=== PATIENT | female | born 1955 | race African-American/Black ===

== ENCOUNTER 2016-06-25 08:21 | Emergency (ER) | payer OTHER, BC ==
[~2016-06-25] VITALS: Ht 170.2 cm; Wt 74.8 kg
--- NOTE | ~2016-06-25 | EKG ---
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
[2016-06-25 09:10] LABS: BASOPHILS 1.5 % (0.0-2.0); HEMATOCRIT 33.6 % (37.0-47.0); HEMOGLOBIN 11.2 gm/dL (12.0-15.0); LYMPHOCYTES 10.7 % (24.0-44.0); MCH 29.3 pg (26.0-34.0); MCHC 33.3 g/dL (28.0-37.0); MONOCYTES 9.1 % (1.0-8.0); PLATELET COUNT 165 thou/uL (150-400); POLYS 71.7 % (36.0-66.0); RBC 3.82 mil/uL (4.20-5.00); RDW 16.3 % (10.5-14.5)
[2016-06-25 09:11] LABS: MANUAL DIFF NO
[2016-06-25 09:27] LABS: ANION GAP 8 mmol/L (7-16); BUN 34 mg/dL (7-18); CHLORIDE 97 mmol/L (98-107); CO2 32 mmol/L (21-32); CREATININE 8.4 mg/dL (0.6-1.3); GLUCOSE 91 mg/dL (70-99); POTASSIUM 5.5 mmol/L (3.5-5.1); SODIUM 137 mmol/L (136-145); TROPONIN-I < 0.04 ng/mL (<0.04-0.07)
[2016-06-25] MEDS ORDERED: NORCO 5-325 TA1 EACH PO (09:32)
[2016-06-25 10:58] VITALS: BP 162/77
== END 2016-06-25 10:59 | disposition home or self-care (01) ==
LOC: ER 08:21
PROVIDERS: Emergency Medicine
DX: R07.89 Other chest pain (principal); Z98.890 Other specified postprocedural states; I12.0 Hypertensive chronic kidney disease with stage 5 chronic kidney disease or end stage renal disease; N18.6 End stage renal disease; Z99.2 Dependence on renal dialysis; E78.00 Pure hypercholesterolemia, unspecified

== ENCOUNTER 2019-12-21 05:01 | Emergency (ER) | payer OTHER, BC ==
[~2019-12-21] VITALS: Ht 170.2 cm; Wt 74.8 kg
--- NOTE | ~2019-12-21 | EMS ---
[address] [address] EMS Patient Care Report Name: LUCIANA MOSLEY Room #: REG LUCIANO So#: [id number] Admission: 12/21/19 Attend Phys: Discharge: Date of : 57 Report #: [id number] THIS REPORT FOR: //name// Report Transmitted: 12/21/2019 06:58 EMS Care Summary [facility] MED-ACT Incident [id number] @ 12/21/2019 04:10 Incident Location [address] [place] [id number] Patient LUCIANA MOSLEY Female, 64 Years 1955 Patient Address [address] [place] [id number] Patient History Atrial Fibrillation,Hip Fracture,Chronic Kidney Disease, Patient Allergies Other drug allergy,Amoxicillin, Patient Medications Lidocaine, Hydrocodone, Amiodarone, Midodrine, Albuterol, Atorvastatin, Levothyroxine, Warfarin, Amitriptyline, Aspirin, Cyclobenzaprine, Gabapentin, Levofloxacin, Prednisone, Chief Complaint low blood pressure per staff Disposition Transported No Lights/[place] Dispatch Reason Sick Person Transported To [facility] Narrative [address] [address] EMS Patient Care Report Name: LUCIANA MOSLEY Room #: REG [place]#: [id number] Admission: 12/21/19 Attend Phys: Discharge: Date of : 57 Report #: [id number] Medic 1149 dispatched to C3 Sick/Ill subject. Pt states that she woke up at approx 02:00 this morning and wanted to sit on the side of her bed. When she sat up, she stated that she could feel that her BP was low and asked the staff to take it for her. Staff found pt to have a BP of approx 60/40. Pt has remained alert and oriented the entire time and denies any shortness of breath, chest pain or other COVID related symptoms. Staff states pt is a dialysis pt and was last dialyzed yesterday (Wednesday) following normal procedure. Staff states that they administered a dose of Midodrine approx 10 prior to summoning EMS in an attempt to raise pt's blood pressure. Staff states pt is at facility recovering from a fractured pelvis. Staff placed pt on 2 lpm via nasal cannula due to hypotension. Upon arrival, pt found sitting on the edge of her bed and leaning to her left where the bed was raised. Pt alert and oriented. No respiratory distress noted. Skin warm, dry. Pt unable to stand due to weakness and knee pain (from previous injuries/surgeries) and had to be sat down. Pt ended up sliding from bed to cot with slight assistance from sheet drag with no incident. V/S acquired on scene. Pt moved from bed to cot and buckled in. Pt taken to ambulance where V/S monitored and pt placed back on 2 lpm via nasal cannula due to slight decrease in O2 Sat when moving pt, although it was difficult to gain an accurate reading on pt due to poor circulation and constant movement. IV access was attempted with no success. Pt transported in position of comfort. Upon arrival, pt moved from cot to bed via sheet drag. Report given to ER staff. Medic 1149 clear. Initial Vitals @04:39P: 98,BP: 68/41,SpO2: 76, @04:49P: 88,SpO2: 86, @04:26P: 99,R: 14,BP: 77/47,Pain: 0/10,GCS: 15,SpO2: 96,Revised Trauma: 11, @04:49R: 16,BP: 73/49,Pain: 0/10,GCS: 15,SpO2: 100,Revised Trauma: 10, Assessments @04:53MENTAL:Person Oriented,Time Oriented,Place Oriented,Event Oriented,SKIN:HEENT:Head/Face: No Abnormalities,Neck/Airway: No Abnormalities,LUNG SOUNDS:General: No Abnormalities,ABDOMEN:General: No Abnormalities,PELVIS//GI:Unstable,EXTREMITIES:Left Arm: Other,Left Leg: Other,Right Leg: Other,Right Arm: No Abnormalities,PULSE:NEURO:No Abnormalities, Impression Hypotension Procedures @04:46Saline Lock cc (22 ga) Site: Hand-RightResponse: UnchangedFailed@04:40Oxygen FlowRate: 2 Device: Nasal Cannula (NC) Response: [facility] 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,Oxygen FlowRate: 2 Device: Nasal Cannula (NC) Response: ImprovedSucceeded, 04:08,Call Received 04:08,Psap Call 04:10,Dispatched 04:12,En Route 04:19,On Scene 04:22,At Patient 04:26,BP: 77/47 M,PULSE: 99,RR: 14 R,SPO2: 96 Ox,ETCO2: ,BG: ,PAIN: 0,GCS: 15, 04:39,BP: 68/41 M,PULSE: 98,RR: R,SPO2: 76 Ox,ETCO2: ,BG: ,PAIN: ,GCS: , 04:40,Oxygen FlowRate: 2 Device: Nasal Cannula (NC) Response: ImprovedSucceeded, 04:40,Surgical Mask on Patient,Response: Unchanged 04:46,Saline Lock cc 22 ga Site: Hand-Right,Response: UnchangedFailed, 04:49,BP: / M,PULSE: 88,RR: R,SPO2: 86 Ox,ETCO2: ,BG: ,PAIN: ,GCS: , 04:49,Depart Scene 04:49,BP: 73/49 M,PULSE: ,RR: 16 R,SPO2: 100 Ox,ETCO2: ,BG: ,PAIN: 0,GCS: 15, 04:59,At Destination 05:14,Call Closed Disclaimer v1.1 Copyright 2020 [employer] This EMS Care Summary contains data elements from the applicable legal record (which may be displayed differently). It is designed to provide pertinent information for the following purposes: continuity of care, clinical quality, and state data reporting. The complete legal record is available to ED staff and administrators of the receiving hospital in [employer]'s Patient Tracker. All data is provided "as is."
[~2019-12-21 05:01] MED LIST: NORCO 5-325 TA1 EACH PO
[2019-12-21 05:59] LABS: ABSOLUTE NEUTROPHILS 8.2 thou/uL (1.4-8.2); BASOPHILS 0.6 % (0.0-2.0); EOSINOPHILS 0.9 % (0.0-3.0); HEMATOCRIT 41.6 % (37.0-47.0); LYMPHOCYTES 5.7 % (24.0-44.0); MCH 25.5 pg (26.0-34.0); MCHC 31.2 g/dL (28.0-37.0); MCV 81.7 fL (80.0-100.0); MONOCYTES 7.9 % (1.0-8.0); PLATELET COUNT 311 thou/uL (150-400); POLYS 84.9 % (36.0-66.0); WBC 9.7 thou/uL (4.0-11.0)
[2019-12-21 06:22] LABS: ALBUMIN 2.4 g/dL (3.4-5.0); ANION GAP 12 mmol/L (7-16); CALCIUM 8.8 mg/dL (8.5-10.1); CHLORIDE 94 mmol/L (98-107); CO2 28 mmol/L (21-32); CREATININE 5.9 mg/dL (0.6-1.0); GLUCOSE 92 mg/dL (74-106); POTASSIUM 4.7 mmol/L (3.5-5.1); SGOT 16 U/L (15-37); SGPT 6 U/L (30-65); SODIUM 134 mmol/L (136-145); TOTAL BILIRUBIN 0.4 mg/dL (0.2-1.0); TOTAL PROTEIN 7.9 g/dL (6.4-8.2); TROPONIN-I <0.06 ng/mL (<0.06)
[2019-12-21 06:34] LABS: BUN 29 mg/dL (7-18)
--- NOTE | 2019-12-21 07:12 | EKG ---
[facility] [place] [address] ELECTROCARDIOGRAM REPORT Name: LUCIANA MOSLEY Room #: REG [facility]#: [id number] Admission: 12/21/19 Attend Phys: Discharge: Date of : 57 Report #: [id number] THIS REPORT FOR: cc: [facility] - Clinic physician unknown [facility] - Clinic physician unknown Berhane Cagle MD 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
[2019-12-21 08:20] LABS: D-DIMER 1.59 ug/mLFEU (0.19-0.50); INR 1.4; PROTIME 14.6 Seconds (9.3-11.4)
[2019-12-21] MEDS ORDERED: PACERONE 200 M200 M1 PO (11:17)
[2019-12-21] MEDS ORDERED: AMITRIPTYLINE H25 M2 PO (11:18)
[2019-12-21] MEDS ORDERED: CHILDREN'S ASPI81 MG PO (11:22)
[2019-12-21] MEDS ORDERED: LIPITOR40 MG PO (11:23)
[2019-12-21] MEDS ORDERED: FLEXERIL PO (11:24)
[2019-12-21] MEDS ORDERED: NEURONTIN100 MG PO (11:29)
[2019-12-21] MEDS ORDERED: HYDROCODON-ACE1 EAC7 PO (11:30)
[2019-12-21] MEDS ORDERED: LEVOFLOXACIN500 MG PO (11:33)
[2019-12-21] MEDS ORDERED: LEVOTHYROXINE88 MCG PO (11:34)
[2019-12-21] MEDS ORDERED: MIDODRINE HCL10 MG PO (11:35)
[2019-12-21] MEDS ORDERED: PROTONIX40 M2 PO (11:36)
[2019-12-21] MEDS ORDERED: PEPCID20 MG PO (11:37)
[2019-12-21] MEDS ORDERED: PREDNISONE 5 MG5 M1 PO (11:37)
[2019-12-21] MEDS ORDERED: PREDNISONE 2.52.5 MG PO (11:38)
[2019-12-21] MEDS ORDERED: EVISTA60 MG PO (11:40)
[2019-12-21] MEDS ORDERED: CALCIUM CARBON500 MG PO (11:40)
[2019-12-21] MEDS ORDERED: WARFARIN SODIUM5 MG PO (11:42)
[2019-12-21] MEDS ORDERED: JANTOVEN4 MG PO (11:43)
[2019-12-21 13:02] VITALS: BP 92/47
== END 2019-12-21 13:16 ==
LOC: ER 05:01
PROVIDERS: Emergency Medicine
DX: I95.1 Orthostatic hypotension (principal); R60.0 Localized edema; I12.0 Hypertensive chronic kidney disease with stage 5 chronic kidney disease or end stage renal disease; N18.6 End stage renal disease; Z88.1 Allergy status to other antibiotic agents; Z79.899 Other long term (current) drug therapy; Z79.82 Long term (current) use of aspirin